=== PATIENT | female | born 1995 | race African-American/Black ===

== ENCOUNTER 2016-11-08 19:11 | Emergency (ER) | payer BC, MEDICAID, OTHER ==
[~2016-11-08] VITALS: Ht 162.6 cm; Wt 106.1 kg
[2016-11-08 19:17] VITALS: BP 144/77
== END 2016-11-08 20:12 | disposition home or self-care (01) ==
LOC: ED 20:00
DX: M77.9 Enthesopathy, unspecified (principal); S99.921A Unspecified injury of right foot, initial encounter; X50.1XXA Overexertion from prolonged static or awkward postures, initial encounter; Y93.89 Activity, other specified; Y99.8 Other external cause status; Y92.410 Unspecified street and highway as the place of occurrence of the external cause
CPT/HCPCS: 99284

== ENCOUNTER 2018-10-13 22:35 | Emergency (ER) | payer MEDICAID, OTHER ==
[~2018-10-13] VITALS: Ht 162.6 cm; Wt 113.0 kg
[2018-10-13 22:37] VITALS: BP 131/83
[2018-10-13 23:10] LABS: HCG UR SG 1.033 (1.003-1.030); MICROSCOPIC AUTO
[2018-10-13 23:20] LABS: CULTURE INDICATED? YES
== END 2018-10-13 23:50 | disposition home or self-care (01) ==
LOC: ED 23:39
DX: N93.9 Abnormal uterine and vaginal bleeding, unspecified (principal); R10.31 Right lower quadrant pain; R10.32 Left lower quadrant pain; F17.200 Nicotine dependence, unspecified, uncomplicated
CPT/HCPCS: 81001; 81025; 87086; 87147; 99283